=== PATIENT | female | born 1975 | race Caucasian/White ===

== ENCOUNTER 2020-08-19 02:48 | Emergency (ER) | payer MEDICAID ==
[~2020-08-19] VITALS: Ht 162.6 cm; Wt 73.0 kg
[2020-08-19] MEDS ORDERED: IBUPROFEN 600MG TABLET PO ONE (04:00)
[2020-08-19 04:38] VITALS: BP 150/90
== END 2020-08-19 07:50 | disposition home or self-care (01) ==
LOC: ER 02:48
DX: I77.1 Stricture of artery (principal); M79.672 Pain in left foot; I10 Essential (primary) hypertension
CPT/HCPCS: 99283

== ENCOUNTER 2025-05-21 | Inpatient (IN) | payer MEDICAID ==
[~2025-05-21] VITALS: Ht 157.5 cm; Wt 78.0 kg
[2025-05-21] VITALS (12 sets, daily range): BP systolic 100–152; BP diastolic 57–77; PULSE 64–88; RESP 17–20; TEMP 36.3–36.8; O2SAT 97–100
[2025-05-21] MEDS: MORPHINE SULFATE 4 MG/ML INJ (FOR IV/IM USE) IM NR (02:55)
[2025-05-21 02:56] LABS: HEMATOCRIT. 34.1 % (36.0-48.0); HEMOGLOBIN. 11.8 g/dL (12.0-16.0); MEAN CORPUSCULAR HEMOGLOBIN 33.2 pg (28.0-32.0); MEAN CORPUSCULAR HGB CONC 34.6 g/dL (31.0-37.0); MEAN CORPUSCULAR VOLUME 95.9 fL (81.0-99.0); MEAN PLATELET VOLUME 8.8 fl (7.4-10.4); PLATELET 171 x1000/uL (130-400); RED BLOOD CELL COUNT 3.56 mill/uL (4.2-5.4); RED CELL DISTRIBUTION WIDTH 14.6 % (11.6-14.6); WHITE BLOOD COUNT 10.8 x1000/uL (4.5-11.0)
[2025-05-21 03:06] LABS: CHLORIDE 103 mEq/L (98-107); POTASSIUM 4.2 mEq/L (3.5-5.1); SODIUM 137 mEq/L (136-145)
[2025-05-21 03:07] LABS: CALCIUM 9.6 mg/dL (8.7-10.4); CARBON DIOXIDE 22 mEq/L (21-32)
[2025-05-21 03:12] LABS: CREATININE 4.4 mg/dL (0.6-1.0); ETHANOL BLOOD < 10 mg/dL (<10); GLUCOSE 254 mg/dL (70-105); UREA NITROGEN BLOOD 62 mg/dL (9-23)
[2025-05-21 03:13] LABS: TROPONIN I HIGH SENSITIVITY 8 ng/L (3.0-34)
[2025-05-21 03:14] LABS: PHOSPHORUS 3.2 mg/dL (2.5-4.9)
[2025-05-21 03:15] LABS: DIFFERENTIAL COMMENT 1
[2025-05-21 06:55] LABS: PLATELET ESTIMATE NORMAL
[2025-05-21 08:08] LABS: INR 0.9; PARTIAL THROMBOPLASTIN TIME 22.8 sec (23.4-31.0); PROTHROMBIN TIME 10.2 sec (9.6-11.0)
[2025-05-21] MEDS ORDERED: ENOXAPARIN 40MG/0.4ML SYR SUBCUT SCH (08:30)
[2025-05-21] MEDS ORDERED: IPRATROPIUM/ALBUTEROL 0.5-3(2.5)MG/3ML NEB NEB PRN (08:30)
[2025-05-21] MEDS ORDERED: HYDROCODONE/ACETAMINOPHEN 5/325MG TABLET PO PRN (08:30)
[2025-05-21] MEDS ORDERED: ONDANSETRON HCL 4MG/2ML INJ IV PRN (08:30)
[2025-05-21] MEDS ORDERED: MAGNESIUM/ALUMINUM HYDROXIDE/SIMETHICONE 30ML UDC PO PRN (08:30)
[2025-05-21] MEDS ORDERED: CLONIDINE 0.1MG TABLET PO PRN (08:30)
[2025-05-21] MEDS ORDERED: ACETAMINOPHEN 325MG TABLET PO PRN (08:30)
[2025-05-21] MEDS ORDERED: NALOXONE HCL 0.4MG/ML VIAL IV PRN (08:45)
[2025-05-21] MEDS: ASPIRIN 81MG TABLET PO SCH (10:53)
[2025-05-21] MEDS: PANTOPRAZOLE SODIUM 40 MG/VIAL IV SCH (10:53)
[2025-05-21] MEDS: ENOXAPARIN 30MG/0.3ML SYR SUBCUT SCH (10:54)
[2025-05-21] MEDS ORDERED: DEXTROSE 50% WATER 50ML SYRINGE IV PRN (13:30)
[2025-05-21] MEDS: INSULIN LISPRO 100 UNITS/ML SUBCUT SCH (14:00)
[2025-05-21 15:36] LABS: HEPATITIS B SURFACE ANTIGEN NEGATIVE (Negative)
[2025-05-21 15:56] LABS: HEPATITIS A AB IGM NEGATIVE (Negative)
[2025-05-21 15:57] LABS: HEPATITIS B CORE AB IGM NEGATIVE (Negative); HEPATITIS C AB NON REACTIVE (Neg) (Negative)
[2025-05-21 17:02] LABS: CLARITY URINE CLEAR (CLEAR); COLOR URINE YELLOW (YELLOW); GLUCOSE URINE 3+ (NEGATIVE); KETONES URINE NEGATIVE (NEGATIVE); LEUKOCYTE ESTERASE URINE NEGATIVE (NEGATIVE); NITRITE URINE NEGATIVE (NEGATIVE); OCCULT BLOOD URINE NEGATIVE (NEGATIVE); PH URINE 7.5 (4.5-8.0); PROTEIN URINE 3+ (NEGATIVE); SPECIFIC GRAVITY URINE 1.016 (1.005-1.030); UROBILINOGEN URINE 0.2 E.U./dL (0.2-1.0)
[2025-05-21 17:16] LABS: BACTERIA URINE NONE SEEN; RBC URINE NONE SEEN /hpf (0-2); SQUAMOUS EPITHELIAL CELL URINE NONE SEEN /lpf (RARE/1+); WBC URINE NONE SEEN /hpf (0-2)
[2025-05-21 17:19] LABS: *AMPHETAMINES SCREEN URINE NEGATIVE (NEGATIVE); *BARBITURATES SCREEN URINE NEGATIVE (NEGATIVE); *BENZODIAZEPINES SCREEN URINE NEGATIVE (NEGATIVE); *COCAINE SCREEN URINE NEGATIVE (NEGATIVE); METHADONE URINE SCREEN NEGATIVE (NEGATIVE); OPIATES URINE SCREEN PRESUMPTIVE POSITIVE (NEGATIVE)
[2025-05-21 17:20] LABS: CANNABINOID URINE SCREEN NEGATIVE (NEGATIVE); ECSTASY MDMA SCREEN URINE NEGATIVE (NEGATIVE); PHENCYCLIDINE URINE SCREEN NEGATIVE (NEGATIVE)
[2025-05-21] MEDS: BLOOD SUGAR DIAGNOSTIC STRIP TEST SCH (17:20)
[2025-05-21 18:23] LABS: IRON 58 ug/dL (50-170)
[2025-05-21 18:26] LABS: TOTAL IRON BINDING CAPACITY 240 ug/dl (250-425)
[2025-05-21 18:52] LABS: TROPONIN I HIGH SENSITIVITY 9 ng/L (3.0-34)
[2025-05-21] MEDS: ATORVASTATIN CALCIUM 40MG TABLET PO SCH (20:50)
[2025-05-21] MEDS: INSULIN GLARGINE 100 UNITS/ML SUBCUT SCH (21:13)
[2025-05-22] VITALS: BP 114/70; PULSE 74; RESP 20; TEMP 36.4; O2SAT 98
[2025-05-22 00:41] LABS: TROPONIN I HIGH SENSITIVITY 9 ng/L (3.0-34)
[2025-05-22 04:00] VITALS: BP 124/66; PULSE 67; RESP 20; TEMP 36.3; O2SAT 98
[2025-05-22 06:30] LABS: BASOPHILS % 0.4 % (0.0-2.0); HEMATOCRIT. 35.2 % (36.0-48.0); LYMPHOCYTES % 18.3 % (20.0-50.0); MEAN CORPUSCULAR HEMOGLOBIN 32.5 pg (28.0-32.0); MEAN CORPUSCULAR HGB CONC 34.1 g/dL (31.0-37.0); MEAN CORPUSCULAR VOLUME 95.2 fL (81.0-99.0); MEAN PLATELET VOLUME 8.8 fl (7.4-10.4); MONOCYTES % 7.8 % (2.0-8.0); NEUTROPHILS % 71.5 % (40.0-76.0); PLATELET 188 x1000/uL (130-400); WHITE BLOOD COUNT 8.7 x1000/uL (4.5-11.0)
[2025-05-22 06:33] LABS: POTASSIUM 4.3 mEq/L (3.5-5.1)
[2025-05-22 06:34] LABS: CALCIUM 9.3 mg/dL (8.7-10.4)
[2025-05-22 06:37] LABS: CREATININE 3.5 mg/dL (0.6-1.0)
[2025-05-22 08:00] VITALS: BP 128/62; PULSE 84; RESP 18; TEMP 36.1; O2SAT 99
[2025-05-22] MEDS ORDERED: LIP40 PO (10:17)
[2025-05-22] MEDS ORDERED: ASPI-1497 MT (10:17)
[2025-05-22] MEDS ORDERED: INSU100I28 SQ (10:17)
[2025-05-22 12:00] VITALS: BP 113/53; PULSE 73; RESP 18; TEMP 36.3; O2SAT 96
[2025-05-22 16:00] VITALS: BP 125/54; PULSE 82; RESP 18; TEMP 36.6; O2SAT 99
[2025-05-22 16:31] VITALS: BP 153/67; PULSE 66; TEMP 97.3; O2SAT 99
== END 2025-05-22 18:30 | disposition home or self-care (01) | DRG 203 ==
LOC: ER → 6WST 03:48 → EDBEDREQ 04:00 → EDBEDREQTM 04:00 → ENRESERV 08:01
PROVIDERS: ADMIT Internal Medicine; ATTEND Internal Medicine
PROC: 5A1D70Z Performance of Urinary Filtration, Intermittent, Less than 6 Hours Per Day (ICD-10-PCS; principal; 2025-05-21)
DX: M94.0 Chondrocostal junction syndrome [Tietze] (principal); I12.0 Hypertensive chronic kidney disease with stage 5 chronic kidney disease or end stage renal disease; E11.22 Type 2 diabetes mellitus with diabetic chronic kidney disease; I25.110 Atherosclerotic heart disease of native coronary artery with unstable angina pectoris; D64.9 Anemia, unspecified; E66.9 Obesity, unspecified; Z68.31 Body mass index [BMI] 31.0-31.9, adult; Z99.2 Dependence on renal dialysis; N18.6 End stage renal disease; Z95.1 Presence of aortocoronary bypass graft; Z91.158 Patient's noncompliance with renal dialysis for other reason
CPT/HCPCS: 36415; 71045; 80048; 80305; 80320; 81003; 82962; 83036; 83540; 83550; 83735; 83880; 84100; 84484; 85025; 86705; 86709; 87340; 90935; 93005; 93970; 99285; J1650; J1815; J2270; J2470; G0480